=== PATIENT | female | born 1985 | race African-American/Black ===

== ENCOUNTER 2024-04-18 00:53 | Emergency (ER) | payer OTHER ==
[~2024-04-18] VITALS: Ht 170.2 cm; Wt 90.9 kg
[2024-04-18 01:00] VITALS: BP 145/90; PULSE 70; RESP 16; TEMP 98.2; O2SAT 100
[2024-04-18 01:26] LABS: APPEARANCE,URINE CLEAR (CLEAR); BILIRUBIN,URINE NEGATIVE (NEGATIVE); COLOR,URINE COLORLESS (YELLOW); GLUCOSE, URINE (UA) NEGATIVE (NEGATIVE); KETONES,URINE NEGATIVE (NEGATIVE); LEUKOCYTE ESTERASE ,URINE NEGATIVE (NEGATIVE); NITRATE,URINE NEGATIVE (NEGATIVE); OCCULT BLOOD,URINE LARGE (NEGATIVE); PH,URINE 7.5 (5.0-8.0); PROTEIN,URINE NEGATIVE (NEGATIVE); UROBILINOGEN,URINE <=1.0 mg/dL (<=1.0)
[2024-04-18 01:28] LABS: BACTERIA,URINE None Seen /HPF (None Seen); HCG,QUAL URINE NEGATIVE (NEGATIVE); RBC,URINE None Seen /HPF (0-2); SQUAMOUS EPITHELIAL CELL,UR Few /LPF (None Seen); WBC,URINE None Seen /HPF (0-5)
[2024-04-18 01:53] LABS: BASOPHILS % (AUTO) 0.5 % (0.0-2.0); EOSINOPHILS % (AUTO) 0.8 % (1.0-6.0); HEMATOCRIT 29.9 % (36-46); HEMOGLOBIN 9.6 g/dL (12.0-16.0); LYMPHOCYTES # (AUTO) 2.9 K/uL (1.0-4.8); LYMPHOCYTES % (AUTO) 53.3 % (22.0-44.0); MEAN CORPUSCULAR HEMOGLOBIN 23.8 pg (26.0-34.0); MEAN CORPUSCULAR VOLUME 74 fL (80-100); MONOCYTES # (AUTO) 0.4 K/uL (0.1-1.0); MONOCYTES % (AUTO) 7.5 % (2.0-9.0); NEUTROPHILS % (AUTO) 37.9 % (40.0-70.0); PLATELET COUNT (AUTO) 244 K/uL (150-450); RED BLOOD CELL COUNT(AUTO) 4.01 MIL/uL (4.00-5.20); RED CELL DISTRIBUTION WIDTH 17.4 % (11.5-14.5); WHITE BLOOD COUNT (AUTO) 5.4 K/uL (4.5-11.0)
[2024-04-18 02:01] LABS: ANION GAP 6 mmol/L (8-16); CALCIUM, TOTAL 9.2 mg/dL (8.8-10.5); CARBON DIOXIDE 30 mmol/L (22-29); CHLORIDE 103 mmol/L (98-107); CREATININE 0.54 mg/dL (0.60-1.30); GLOMERULAR FILTR. RATE CALC > 60 mL/min (>60); GLUCOSE,RANDOM 97 mg/dL (70-110); POTASSIUM 4.1 mmol/L (3.5-5.1); SODIUM SERUM 139 mmol/L (136-145); UREA NITROGEN, BLOOD 12 mg/dL (7-18)
[2024-04-18 02:02] LABS: RBC MORPHOLOGY COMMENT ABNORMAL RBC MORPH
[2024-04-18] MEDS ORDERED: IBUP-1492 PO (03:55)
== END 2024-04-18 03:56 | disposition home or self-care (01) ==
LOC: EMS 00:58
DX: N20.0 Calculus of kidney (principal); R30.0 Dysuria
CPT/HCPCS: 80048; 81001; 84703; 85025; 99283

== ENCOUNTER 2024-10-25 20:51 | Emergency (ER) | payer OTHER ==
[~2024-10-25] VITALS: Ht 165.1 cm; Wt 100.0 kg
[~2024-10-25 20:51] MED LIST: IBUP-1492 PO
[2024-10-25 20:55] VITALS: BP 140/75; PULSE 76; RESP 20; TEMP 97.9; O2SAT 100
== END 2024-10-25 23:00 | disposition left against medical advice (07) ==
LOC: EMS 20:51
DX: R53.1 Weakness (principal); Z53.21 Procedure and treatment not carried out due to patient leaving prior to being seen by health care provider